=== PATIENT | female | born 2000 | race Caucasian/White ===

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

== ENCOUNTER 2019-10-07 21:20 | Emergency (ER) | payer MEDICAID, SELFPAY ==
[2019-10-07 21:32] VITALS: BP 141/88; PULSE 102; RESP 18; TEMP 37; O2SAT 98; BMI 26.6
--- NOTE | 2019-10-07 21:52 | HMH.EDMCLR ---
ED Disposition Clinical Impression: Medical clearance for incarceration Disposition: Home, Self-Care Condition on Discharge: Good Referrals: Masood Carter MD [Primary Care Provider] - - Critical Care Critical Care Time: No Attestation: On 10/07/19, the high probability of a clinically significant, sudden or life threatening deterioration of the following system(s) required my full and direct attention, intervention and personal management. The time I documented below is in addition to time spent performing reported procedures but includes the following listed in this critical care notation. Medical Decision Making - Medical Records Medical records reviewed: Yes: I reviewed the patient's medical records. - Nico Inquiry Pt receiving controlled substance: No Vital Signs: 10/07/19 21:32 Temperature 98.6 F Temperature Source Oral Pulse Rate [Left] 102 H Respiratory Rate 18 Blood Pressure [Right Arm] 141/88 H Blood Pressure Mean [Right Arm] 105 Blood Pressure Source [Right Arm] Automatic Cuff Blood Pressure Position [Right Arm] Sitting 02 Sat by Pulse Oximetry 98 Oxygen Delivery Method Room Air - Lab Data Lab results reviewed: Yes: I reviewed the patient's lab results. Medical Clearance HPI - General Chief complaint: Medical Clearance Stated complaint: medical clearance Time Seen by Provider: 10/07/19 21:40 Mode of Arrival: Ambulatory Source of Information: Patient Description of Symptoms (Recalled from ER Triage Doc. by RN): Pt here via S.O. for Medical Clearance - History of Present Illness complaint: medical clearance requested Onset (ago): minute(s) Reason for Medical Clearance: intoxication Place: home Alleged Intoxication: Yes Compliant with Home Medications: Yes Traumatic Symptoms: denies traumatic injury Associated Symptoms: denies other symptoms Home medications: Home Medications Medication Instructions Recorded Confirmed Naltrexone Microspheres [Vivitrol] 380 mg IM MONTHLY 10/07/19 10/07/19 Allergies/Adverse reactions: Allergies Allergy/AdvReac Type Severity Reaction Status Date / Time No Known Allergies Allergy Verified 03/15/17 09:14 [facility] History - Hepatitis A Screen Drug use history?: No High risk sexual behaviors?: No History of sexually transmitted infection?: No Currently employed?: No Childcare worker?: No Do you have indoor plumbing?: Yes Do you have electricity?: Yes Attestation statement:: This patient has been screened for Hepatitis A risk factors. I have reviewed the patient's past medical history: Yes Medical History: Denies:: Cancer, Diabetes Mellitus Type 1, Diabetes Mellitus Type 2, MRSA Amputation: No Fractures: No - Social History Smoking Status: Current every day smoker Tobacco Type: cigarettes # Packs/Day (cigarettes): 1 Alcohol Intake: never Substance Use Type: methamphetamine Occupational Status: unemployed ROS Obtained: Yes All systems reviewed & no additional complaints - Constitutional Constitutional: Reports system reviewed and no additional complaints, except as docu - Eyes Eyes: Reports system reviewed and no additional complaints, except as docu - ENT Ears, Nose, Mouth, and Throat: Reports system reviewed and no additional complaints, except as docu - Cardiovascular Cardiovascular: Reports system reviewed and no additional complaints, except as docu - Respiratory Respiratory: Yes system reviewed and no additional complaints, except as docu - Gastrointestinal Gastrointestingal: Reports: system reviewed and no additional complaints, except as docu - Genitourinary Male Genitourinary: Reports system reviewed and no additional complaints, except as docu Female Genitourinary: Reports system reviewed and no additional complaints, except as docu - Musculoskeletal Musculoskeletal: Reports system reviewed and no additional complaints, except as docu - Integumentary/Breasts Skin/Breast: Reports system revie
[2019-10-07 22:08] VITALS: BP 138/42; PULSE 99; RESP 16; TEMP 37; O2SAT 98
== END 2019-10-07 22:09 | disposition home or self-care (01) ==
PROVIDERS: Emergency Provider Family Medicine; PCP Internal Medicine Adolescent Medicine
DX: F19.10 Other psychoactive substance abuse, uncomplicated (principal)
CPT/HCPCS: 99282

== ENCOUNTER 2020-06-04 22:51 | Emergency (ER) | payer MEDICAID, SELFPAY ==
[2020-06-04 22:53] VITALS: BMI 17.2
[2020-06-04 23:41] VITALS: BMI 24.1
[2020-06-04 23:42] VITALS: BP 154/105; PULSE 128; RESP 24; TEMP 38.4; O2SAT 93; BMI 24.1
[2020-06-04 23:43] LABS: Microscopic, Urine URINE MICROSCOPIC (MICROSCOPIC)
[2020-06-04 23:45] LABS: Appearance,Urine SL CLOUDY (Clear); Bilirubin,Urine Negative (Negative); Blood, Urine Negative (Negative); Color,Urine YELLOW (Yellow); Glucose,Urine (UA) Negative (Negative); Ketones,Urine TRACE (Negative); Leukocyte Esterase,Urine TRACE (Negative); Nitrate,Urine Negative (Negative); PH,Urine 5.5 (5.0-8.5); Protein,Urine 1+ (Negative); Specific Gravity, Urine 1.025 (1.005-1.030)
[2020-06-04 23:46] LABS: Urine Pregnancy, HCG Qual. Negative (Negative)
[2020-06-04 23:55] LABS: Barbiturates Screen,Urine Negative ng/ml (<200)
[2020-06-04 23:56] LABS: Benzodiazepines Screen,Urine Negative ng/ml (<200)
[2020-06-04 23:57] LABS: Cannabinoid Screen,Urine Positive ng/ml (<50)
[2020-06-04 23:58] LABS: Cocaine Screen,Urine Negative ng/ml (<300)
[2020-06-04 23:59] LABS: Methadone Screen,Urine Negative ng/ml (<300); Opiate Screen,Urine Negative ng/ml (<300)
[2020-06-05] LABS: Phencyclidine Screen,Urine Negative ng/ml (<25)
--- NOTE | 2020-06-05 00:01 | CT_ITS ---
PROCEDURE: CT ANGIO CHEST CLINCIAL INDICATION: shortness of breath with cough Chest pain COMPARISON: CT ABDPELWO CT abdomen pelvis wo con from 03/15/2017 TECHNIQUE: IV Contrast: 70ML Isovue 370 Axial images obtained with sagittal and coronal reformats. All CT scans at the facility use one or more dose reduction, viz: automated exposure control, ma/kV adjustment per patient size (including targeted exams where dose is matched to indication, i.e. head), or iterative reconstruction technique. FINDINGS: HEART AND MEDIASTINAL STRUCTURES: No evidence of aortic aneurysm or pulmonary embolus. Adenopathy is present in the mediastinum within the subcarinal region and extending along the medial aspect of the right lower lobe bronchus. Small nodes are present in the anuja with stippled calcifications. There is some stippled calcification present within the mediastinal nodes.. LUNGS AND PLEURAL SPACES: There are numerous bilateral pulmonary nodular opacities in both upper and lower lobes most of which are peripheral and somewhat ill-defined margins measuring up to 1.8 cm in the right lower lobe posterior laterally. No obvious cavitation within the nodules. There is a small pneumatocele in the left lower lobe posteriorly. Atelectatic changes or scarring present in the right middle lobe. No pleural effusion. BONY STRUCTURES: No acute bony abnormalities apparent. UPPER ABDOMEN: Fatty liver. Splenomegaly with heterogeneous enhancement of the spleen. ADDITIONAL FINDINGS: Mild diffuse subcutaneous edema. There are few small left axillary lymph nodes. IMPRESSION: 1. Numerous ill-defined pulmonary opacities associated with hilar adenopathy. Differential diagnosis would include sarcoidosis, septic emboli , lymphoma, or metastatic disease. Follow-up is suggested. 2. Splenomegaly 3. No evidence of pulmonary embolus. Dictated by: Sea Pierre MD 06/05/2020 10:28 Sea Pierre MD in [facility] 06/05/2020 10:28
[2020-06-05 00:08] LABS: Bacteria,Urine 3+ /lpf; Squamous Epithelial Cell,Urine 20-50 #/hpf (0-5)
[2020-06-05 00:12] LABS: Amphetamine/Metha Screen,Urine Positive ng/ml (<1000)
[2020-06-05 00:14] LABS: Basophils % 0.5 % (0.1-2.0); Eosinophils % 0.3 % (0.1-12.0); Hematocrit 37.2 % (37.0-47.0); Hemoglobin 11.5 g/dL (12.2-16.2); Lymphocytes # 0.7 K/mm3 (0.7-4.5); Lymphocytes % 11.6 % (10-50); Mean Corpuscular HGB Conc 30.9 g/dL (31.8-35.4); Mean Corpuscular Hemoglobin 28.3 pg (27.0-31.2); Mean Corpuscular Volume 91.6 fl (81-99); Mean Platelet Volume 10.1 fl (7.4-10.4); Monocytes # 0.2 K/mm3 (0.1-1.0); Monocytes % 3.3 % (1.7-9.3); Neutrophils # 4.8 K/mm3 (1.8-7.8); Neutrophils % 84.3 % (37.0-80.0); Platelet Count 95 K/mm3 (142-424); Red Blood Count 4.06 M/mm3 (4.20-5.40); Red Cell Distribution Width 14.4 % (11.5-17.5); White Blood Count 5.7 K/mm3 (4.8-10.8)
[2020-06-05 00:31] LABS: Alanine Aminotransferase 190 U/L (12-78); Albumin Level 3.7 g/dl (3.5-5.0); Albumin/Globulin Ratio 1.1 (1.1-1.8); Alkaline Phosphatase 93 U/L (38-126); Anion Gap 11.1 mEq/L (5-15); Aspartate Amino Transferase 143 U/L (14-36); Bilirubin,Total 0.5 mg/dl (0.2-1.3); Blood Urea Nitrogen 11 mg/dl (7-17); Calcium 8.8 mg/dl (8.4-10.2); Carbon Dioxide 24 mmol/L (22.0-30.0); Chloride 101 mmol/L (98-107); Creatinine Clearance Estimated 185 mL/min (50-200); Estimated Glomerular Filt Rate 156 ml/min (>60); GFR (African American) 188 ML/MIN (>60); Globulin 3.3 g/dL (1.3-3.2); Glucose 113 mg/dl (74-100); Lactic Acid 1.3 mmol/L (0.7-2.1); Potassium 3.1 mmoL/L (3.5-5.1); Sodium 133 mmol/L (136-145)
[2020-06-05 00:35] LABS: C-Reactive Protein 104.4 mg/L (0-4)
[2020-06-05 00:38] LABS: Erythrocyte Sedimentation Rate 25 mm/hr (0-20)
[2020-06-05 00:49] VITALS: PULSE 97; O2SAT 94
[2020-06-05 00:49] LABS: Procalcitonin 0.313 ng/mL (0.0-2.0)
--- NOTE | 2020-06-05 00:52 | HMH.EDSOB ---
ED Disposition Clinical Impression: IVDU (intravenous drug user), Cellulitis and abscess of upper arm and forearm, SIRS (systemic inflammatory response syndrome), Heart murmur Disposition: Left Against Medical Advice Condition on Discharge: Serious Instructions: DI for Shortness of Breath Additional Instructions: use meds and see pcp on saturday Prescriptions: cephALEXin [cephALEXin 500mg capsule*] 500 mg PO TID #30 cap Transmission Status: Pending to [facility] # clindamycin HCL [Cleocin HCl] 300 mg PO TID #30 cap Transmission Status: Pending to [facility] # Referrals: Masood Carter MD [Primary Care Provider] - - Critical Care Critical Care Time: No Attestation: On 06/04/20, the high probability of a clinically significant, sudden or life threatening deterioration of the following system(s) required my full and direct attention, intervention and personal management. The time I documented below is in addition to time spent performing reported procedures but includes the following listed in this critical care notation. Medical Decision Making - Medical Records Medical records reviewed: Yes: I reviewed the patient's medical records. - Nico Inquiry Pt receiving controlled substance: No Vital Signs: 06/04/20 23:42 06/05/20 00:49 06/05/20 01:00 Temperature 101.2 F H Temperature Source Oral Pulse Rate 97 H 88 Pulse Rate [Right Brachial] 128 H Respiratory Rate 24 Blood Pressure 169/81 H Blood Pressure [Right Arm] 154/105 H Blood Pressure Mean 119 Blood Pressure Mean [Right Arm] 121 Blood Pressure Source [Right Arm] Automatic Cuff 02 Sat by Pulse Oximetry 93 L 94 L 97 Oxygen Delivery Method Room Air Room Air Room Air - Lab Data Lab results reviewed: Yes: I reviewed the patient's lab results. Lab Results 06/04/20 23:30: Urine Color Yellow, Urine Appearance Sl cloudy, Urine pH 5.5, Ur Specific [place] 1.025, Urine Protein 1+, Urine Glucose (UA) Negative, Urine Ketones Trace, Urine Blood Negative, Urine Nitrate Negative, Urine Bilirubin Negative, Urine Urobilinogen 1.0, Ur Leukocyte Esterase Trace, Urine RBC None, Urine WBC 5-10, Ur Squamous Epith Cells 20-50, Urine Bacteria 3+ 06/04/20 23:30: Urine HCG, Qual Negative 06/04/20 23:30: Urine Opiates Screen Negative, Urine Methadone Screen Negative, Ur Barbituates Screen Negative, Ur Phencyclidine Scrn Negative, Ur Amphetamines Screen Positive H, U Benzodiazepines Scrn Negative, Urine Cocaine Screen Negative, U Marijuana (THC) Screen Positive H 06/05/20 00:01: WBC 5.7, RBC 4.06 L, Hgb 11.5 L, Hct 37.2, MCV 91.6, MCH 28.3, MCHC 30.9 L, RDW 14.4, Plt Count 95 L, MPV 10.1, Neut % (Auto) 84.3 H, Lymph % (Auto) 11.6, [place] % (Auto) 3.3, Eos % (Auto) 0.3, Baso % (Auto) 0.5, Neut # (Auto) 4.8, Lymph # (Auto) 0.7, [place] # (Auto) 0.2, Eos # (Auto) 0.0, Baso # (Auto) 0.0, ESR 25 H 06/05/20 00:01: Sodium 133 L, Potassium 3.1 L, Chloride 101, Carbon Dioxide 24, Anion Gap 11.1, BUN 11, Creatinine 0.50 L, Estimated Creat Clear 185, Estimated GFR 156, Est GFR ( Amer) 188, Glucose 113 H, Calcium 8.8, Total Bilirubin 0.5, AST 143 H, ALT 190 H, Alkaline Phosphatase 93, C-Reactive Protein 104.4 H, Total Protein 7.0, Albumin 3.7, Globulin 3.3 H, Albumin/Globulin Ratio 1.1 06/05/20 00:01: Lactate 1.3 06/05/20 00:01: Procalcitonin 0.313 Result diagrams: 06/05/20 00:01 06/05/20 00:01 Orders (Tests/Meds): ED MEDICATIONS Generic Name Dose Route Start Last Admin Trade Name Freq PRN Reason Stop Dose Admin Sodium Chloride 1,000 mls @ 999 mls/hr 06/05/20 01:15 06/05/20 01:03 Sod Chlor 0.9% 1000ml Bag IV 06/05/20 02:15 999 mls/hr .[id number] CHINO Administration Discontinued Medications Generic Name Dose Route Start Last Admin Trade Name Freq PRN Reason Stop Dose Admin Iopamidol 70 ml 06/05/20 00:53 06/05/20 00:54 Iopamidol-370 (76%);100ml Bottle IV 06/05/20 00:54 70 ml ONCE ONE Administration Ketorolac Tro
[2020-06-05 01:00] VITALS: BP 169/81; PULSE 88; O2SAT 97
--- NOTE | 2020-06-05 01:12 | PC.NURSE ---
I spoke with pt about doing a COVID swab for admission and pt refused swab and admission. Pt states she will go to [facility] tomorrow, but refuses to stay here.
[2020-06-05 01:55] VITALS: BP 160/86; PULSE 111; RESP 16; TEMP 38.4; O2SAT 96
--- NOTE | 2020-06-06 21:09 | PC.NURSE ---
patient records sent to [facility]
--- NOTE | 2020-06-07 09:05 | PC.NURSE ---
faxed bc results to [facility] where pt is admitted at this current time
== END 2020-06-05 01:38 | disposition left against medical advice (07) ==
PROVIDERS: Emergency Provider Emergency Medicine; PCP Internal Medicine Adolescent Medicine
DX: L03.114 Cellulitis of left upper limb (principal); F15.20 Other stimulant dependence, uncomplicated; R65.10 Systemic inflammatory response syndrome (SIRS) of non-infectious origin without acute organ dysfunction; R01.1 Cardiac murmur, unspecified; F17.210 Nicotine dependence, cigarettes, uncomplicated
CPT/HCPCS: 71275; 80053; 80305; 81001; 81025; 83605; 84145; 85025; 85651; 86140; 87040; 87077; 87086; 87186; 96365; 96375; 99283; J3370; Q9967

== ENCOUNTER 2020-06-05 17:08 | Emergency (ER) | payer MEDICAID, SELFPAY ==
[2020-06-05 17:10] VITALS: BP 118/74; PULSE 90; RESP 18; TEMP 37.2; O2SAT 89; BMI 22.3
[2020-06-05 17:11] VITALS: O2SAT 98
--- NOTE | 2020-06-05 17:18 | [facility].EDGENADL ---
ED Disposition Clinical Impression: Bacteremia Endocarditis Qualifiers: Endocarditis type: infective Infective endocarditis organism: bacterial Chronicity: acute Qualified Code(s): I33.0 - Acute and subacute infective endocarditis Septic pulmonary embolism Qualifiers: Chronicity: acute Acute cor pulmonale presence: unspecified Qualified Code(s): I26.90 - Septic pulmonary embolism without acute cor pulmonale Disposition: Left Against Medical Advice Condition on Discharge: Serious Referrals: Masood Carter MD [Primary Care Provider] - - Critical Care Critical Care Time: No Attestation: On 06/05/20, the high probability of a clinically significant, sudden or life threatening deterioration of the following system(s) required my full and direct attention, intervention and personal management. The time I documented below is in addition to time spent performing reported procedures but includes the following listed in this critical care notation. Medical Decision Making - Medical Records Medical records reviewed: Yes: I reviewed the patient's medical records. MR Comment: Reviewed emergency department visit from last night. The patient signed out AGAINST MEDICAL ADVICE. Diagnosed with cellulitis and SIRS. Blood cultures have returned as positive for staph aureus MECA on both bottles and Streptococcus on one. Gram stain showed gram-positive cocci in pairs, but no chains - on both bottles. CTA of chest was performed and findings worrisome for septic emboli, see below. - Nico Inquiry Pt receiving controlled substance: No Orders (Tests/Meds): ED MEDICATIONS Generic Name Dose Route Start Last Admin Trade Name Freq PRN Reason Stop Dose Admin Miscellaneous 1 each 06/05/20 17:45 Vancomycin Consult Request * 07/05/20 17:44 CONSULT PHARMACY [facility] ORDERS Category Date Time Status CMP [Comprehensive Metabolic Panel] Stat Lab 06/05/20 17:44 Ordered Complete Blood Count Auto Diff Stat Lab 06/05/20 17:44 Ordered Blood Culture Stat Micro 06/05/20 17:44 Ordered - Reevaluation(s) Time: 17:53 Reevaluation #1: I examined the patient and reviewed her records. I explained to her that I thought she most likely had endocarditis with septic pulmonary emboli. I advised her that she would require admission and intravenous antibiotics and further work-up such as echocardiogram. I told her she may need to be transferred to a facility with infectious disease specialists, but I would speak with Dr. Martínez, who is covering for her primary care doctor, Dr. Carter and speak with him about admission versus transfer. She was agreeable with all that at the time I spoke with her. I went to attend to a critical patient who arrived by ambulance and when I came out of that patient's room nurse informed me that Ms. Day had left AGAINST MEDICAL ADVICE and was already gone from the emergency department. Medical Decision Narrative: PROCEDURE: CT ANGIO CHEST CLINCIAL INDICATION: shortness of breath with cough Chest pain COMPARISON: CT ABDPELWO CT abdomen pelvis wo con from 03/15/2017 TECHNIQUE: IV Contrast: 70ML Isovue 370 Axial images obtained with sagittal and coronal reformats. All CT scans at the facility use one or more dose reduction, viz: automated exposure control, ma/kV adjustment per patient size (including targeted exams where dose is matched to indication, i.e. head), or iterative reconstruction technique. FINDINGS: HEART AND MEDIASTINAL STRUCTURES: No evidence of aortic aneurysm or pulmonary embolus. Adenopathy is present in the mediastinum within the subcarinal region and extending along the medial aspect of the right lower lobe bronchus. Small nodes are present in the anuja with stippled calcifications. There is some stippled calcification present within the mediastinal nodes.. LUNGS AND PLEURAL SPACES: There are numerous bilateral pulmonary nodular opacities in both upper and lower l
[2020-06-05 17:54] VITALS: BP 118/74; PULSE 90; RESP 20; TEMP 37.2; O2SAT 95
--- NOTE | 2020-06-05 17:54 | PC.NURSE ---
Pt came to nurses station and asked if the doctor was busy and was told at that time, yes he was in with another pt. Pt stated that she wanted to go ahead and sign her papers and go to another hospital. Family member that was with pt stated that he did not want her to do that. Explained to family member that pt was of sound mind and we could not stop her. Family member told the pt that he was done with her and she could walk out he wasnt taking her anywhere. Pt educated that she did need to get medical attention for her symptoms and stated that she was. MD carmona
== END 2020-06-05 17:55 | disposition left against medical advice (07) ==
PROVIDERS: Emergency Provider Emergency Medicine; PCP Internal Medicine Adolescent Medicine
DX: R78.81 Bacteremia (principal); I33.0 Acute and subacute infective endocarditis; I26.90 Septic pulmonary embolism without acute cor pulmonale; F19.90 Other psychoactive substance use, unspecified, uncomplicated; F17.210 Nicotine dependence, cigarettes, uncomplicated; B18.2 Chronic viral hepatitis C
CPT/HCPCS: 99281